=== PATIENT | female | born 1945 | race Caucasian/White ===

== ENCOUNTER 2018-12-25 14:38 | Emergency (ER) | payer SELFPAY ==
[~2018-12-25] VITALS: Ht 167.6 cm; Wt 82.6 kg
[2018-12-25 15:32] VITALS: BP 176/99
[2018-12-25] MEDS ORDERED: GELATIN SPONGE,ABSORBABLE 1 SPONGE SPONGE TP ONE (15:44)
[2018-12-25] MEDS ORDERED: TDAP [DIPH/PERTUSSIS/TET] 0.5 ML VIAL IM ONE ×2 (15:46→16:00)
[2018-12-25] MEDS ORDERED: BACI/NEOM/POLY B OINT PKT 1 UDPKT PACKET TP ONE (16:00)
== END 2018-12-25 16:23 | disposition home or self-care (01) ==
LOC: ER 14:38
DX: S81.812A Laceration without foreign body, left lower leg, initial encounter (principal); Z98.890 Other specified postprocedural states; Z96.653 Presence of artificial knee joint, bilateral; W22.8XXA Striking against or struck by other objects, initial encounter; Y93.01 Activity, walking, marching and hiking; Y92.89 Other specified places as the place of occurrence of the external cause; Y99.8 Other external cause status
CPT/HCPCS: 90471; 90715; 99283; A6402